=== PATIENT | female | born 1975 | race Caucasian/White ===

== ENCOUNTER → 2022-04-25 09:00 | Outpatient (CLI) | payer OTHER, SELFPAY ==
[2022-04-25 13:50] LABS: Alanine Aminotransferase 18 U/L (12-78); Albumin Level 3.9 g/dl (3.5-5.0); Albumin/Globulin Ratio 1.4 (1.1-1.8); Alkaline Phosphatase 82 U/L (38-126); Anion Gap 14.5 mEq/L (5-15); Aspartate Amino Transferase 24 U/L (14-36); Blood Urea Nitrogen 13 mg/dl (7-17); Carbon Dioxide 27 mmol/L (22.0-30.0); Chloride 98 mmol/L (98-107); Chol/HDL Ratio 4.2 (1-3.5); Cholesterol 206 mg/dl (140-200); Estimated Glomerular Filt Rate 91 ml/min (>60); GFR (African American) 110 ML/MIN (>60); Globulin 2.8 g/dL (1.3-3.2); Glucose 95 mg/dl (74-100); HDL Cholesterol 49 mg/dl (40-60); Potassium 4.5 mmoL/L (3.5-5.1); Sodium 135 mmol/L (136-145); Total Protein,Serum 6.7 g/dl (6.3-8.2); Triglycerides 157 mg/dl (30-150); VLDL Cholesterol 31 mg/dL (0-40)
[2022-04-25 13:54] LABS: Bilirubin,Total < 0.1 mg/dl (0.2-1.3)
[2022-04-25 13:55] LABS: Basophils # 0.1 K/mm3 (0-0.2); Basophils % 1.5 % (0.1-2.0); Eosinophils # 0.7 K/mm3 (0.0-0.4); Eosinophils % 7.5 % (0.1-12.0); Hematocrit 39.9 % (37.0-47.0); Hemoglobin 12.8 g/dL (12.2-16.2); Lymphocytes # 3.4 K/mm3 (0.7-4.5); Lymphocytes % 37.8 % (10-50); Mean Corpuscular Hemoglobin 28.8 pg (27.0-31.2); Mean Corpuscular Volume 89.9 fl (81-99); Mean Platelet Volume 9.3 fl (7.4-10.4); Monocytes # 0.4 K/mm3 (0.1-1.0); Monocytes % 4.6 % (1.7-9.3); Neutrophils # 4.4 K/mm3 (1.8-7.8); Neutrophils % 48.7 % (37.0-80.0); Platelet Count 380 K/mm3 (142-424); Red Blood Count 4.44 M/mm3 (4.20-5.40); Red Cell Distribution Width 14.6 % (11.5-17.5); White Blood Count 9.1 K/mm3 (4.8-10.8)
[2022-04-25 14:01] LABS: Direct LDL Cholesterol 133.84 mg/dL (100-129)
[2022-04-25 14:06] LABS: Free T4 (Free Thyroxine) 1.24 ng/dl (0.78-2.19)
[2022-04-25 14:07] LABS: 25-OH Vitamin D, Total 16.6 ng/mL (30-100)
[2022-04-25 14:22] LABS: Thyroid Stimulating Hormone 7.17 uIU/mL (0.465-4.68)
== END ==
PROVIDERS: PCP Emergency Medicine; Visit Provider Emergency Medicine
DX: E03.9 Hypothyroidism, unspecified (principal); E66.9 Obesity, unspecified; E55.9 Vitamin D deficiency, unspecified; Z68.41 Body mass index [BMI] 40.0-44.9, adult
CPT/HCPCS: 80053; 80061; 82306; 84439; 84443; 85025

== ENCOUNTER → 2022-06-26 15:51 | Outpatient (CLI) | payer OTHER, SELFPAY ==
--- NOTE | 2022-06-26 15:51 | MR_ITS ---
FINAL REPORT CLINICAL HISTORY: right knee pain. popping in knee. anterior knee pain. knee instability. no injury or trauma. FINDINGS: Multiplanar MR imaging of the right knee was performed without contrast. There is degenerative signal in the posterior horn of the medial meniscus with a possible tear. The lateral meniscus is intact. The anterior and posterior cruciate ligaments are intact. The medial collateral ligament and lateral ligamentous complex are intact. The patellar and quadriceps tendons are intact. There is a focus of abnormal signal in the posterior aspect of the medial tibial plateau measuring 11 mm, likely a focus of osteonecrosis. Mild degenerative changes are present. There are 2 anterior loose bodies, larger measures 7 mm. 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 Small joint effusion is seen. The musculature is intact. IMPRESSION: Possible tear posterior horn medial meniscus. 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 Loose bodies anteriorly. Degenerative change and chondromalacia. Reviewed, Interpreted and Dictated by Acosta Jon III, MD Transcribed by Eliana Waller Authenticated and [facility]
== END ==
PROVIDERS: PCP Emergency Medicine; Visit Provider Emergency Medicine
DX: M25.561 Pain in right knee (principal)
CPT/HCPCS: 73721

== ENCOUNTER → 2022-07-30 11:02 | Outpatient (CLI) | payer OTHER, SELFPAY ==
--- NOTE | 2022-07-30 11:03 | MR_ITS ---
FINAL REPORT CLINICAL HISTORY: anterior knee pain. no injury or trauma. knee instability, pain worse when going down steps. FINDINGS: Multiplanar MR imaging of the right knee was performed without contrast. The medial and lateral menisci are intact without evidence of meniscal tear. The anterior and posterior cruciate ligaments are intact. The medial collateral ligament and lateral ligamentous complex are intact. The patellar and quadriceps tendons are intact. There is no evidence of fracture. There is moderate patellar chondromalacia. There is a small focus of abnormal signal at the posterior aspect of the medial tibial plateau favored represent a small focus of osteonecrosis with surrounding bone marrow edema. A moderate-sized joint effusion is seen. The musculature is intact. No soft tissue mass or cyst is identified. IMPRESSION: Small focus of osteonecrosis at the posterior aspect of the medial tibial plateau with surrounding bone marrow edema. Moderate joint effusion. Moderate patellar chondromalacia. Reviewed, Interpreted and Dictated by Acosta Jon III, MD Transcribed by Staci Loomis Authenticated and [facility]
== END ==
PROVIDERS: PCP Emergency Medicine; Visit Provider Orthopaedic Surgery
DX: M25.562 Pain in left knee (principal); M23.92 Unspecified internal derangement of left knee
CPT/HCPCS: 73721